=== PATIENT | female | born 1965 | race Caucasian/White ===

== ENCOUNTER 2022-03-30 14:09 | Emergency (ER) | payer OTHER ==
[~2022-03-30] VITALS: Ht 177.8 cm; Wt 81.7 kg
[~2022-03-30 14:09] MED LIST: HYDACE5 PO; RXHYDACE PO
[2022-03-30] MEDS ORDERED: TRESIBA FL100 UNIT/2 SC (14:16)
== END 2022-03-30 14:20 | disposition home or self-care (01) ==
LOC: ER 14:09
DX: Z76.0 Encounter for issue of repeat prescription (principal); E11.9 Type 2 diabetes mellitus without complications; Z79.4 Long term (current) use of insulin; Z88.0 Allergy status to penicillin; Z88.8 Allergy status to other drugs, medicaments and biological substances
CPT/HCPCS: 99281

== ENCOUNTER 2024-08-05 17:44 | Emergency (ER) | payer OTHER ==
[~2024-08-05] VITALS: Ht 177.8 cm; Wt 81.7 kg
[~2024-08-05 17:44] MED LIST changes: +TRESIBA FL100 UNIT/2 SC
[2024-08-05 17:51] VITALS: BP 157/85
== END 2024-08-05 23:07 | disposition home or self-care (01) ==
LOC: ER 17:44
DX: S40.012A Contusion of left shoulder, initial encounter (principal); E11.9 Type 2 diabetes mellitus without complications; Z79.4 Long term (current) use of insulin; Z88.0 Allergy status to penicillin; Z88.8 Allergy status to other drugs, medicaments and biological substances; V89.2XXA Person injured in unspecified motor-vehicle accident, traffic, initial encounter
CPT/HCPCS: 71100; 73000; 73502; 76882; 99284-25